=== PATIENT | male | born 1930 | race Caucasian/White ===

== ENCOUNTER 2016-12-17 11:23 | Inpatient (IN) | payer MEDICARE ==
[~2016-12-17] VITALS: Ht 185.4 cm; Wt 92.3 kg
[~2016-12-17 11:23] MED LIST: DILT120T3 PO; FLUO20CA8 PO; GALA8TAB PO; LEVO112T4 PO; SIMV40TA3 PO; WARF2.5T73 PO
[2016-12-17] MEDS ORDERED: SODIUM CHLORIDE 0.9% 1,000 ML IV ONE (11:38)
[2016-12-17 12:00] LABS: HEMOGLOBIN 9.7 g/dL (13.7-18.0)
[2016-12-17] MEDS ORDERED: SODIUM CHLORIDE 0.9% 1,000ML IVBOLUS ONE (12:00)
[2016-12-17] MEDS ORDERED: SODIUM CHLORIDE FLUSH 10ML SYR IVF ONE (12:00)
[2016-12-17] MEDS ORDERED: OMEP40CA6 PO (12:03)
[2016-12-17] MEDS ORDERED: DONE5TAB30 PO (12:03)
[2016-12-17 12:14] LABS: ASPARTATE AMINO TRANSFERASE 12 U/L (15-37); BLOOD UREA NITROGEN 22 mg/dL (7-18)
[2016-12-17] MEDS ORDERED: PHYTONADIONE 10 MG in SODIUM CHLORIDE 0.9% 50 ML IV ONE (14:00)
[2016-12-17] MEDS ORDERED: PANTOPRAZOLE 80 MG in SODIUM CHLORIDE 0.9% 50 ML IV ONE (14:00)
[2016-12-17] MEDS ORDERED: SODIUM CHLORIDE FLUSH 10ML SYR IVF PRN (14:30)
[2016-12-17] MEDS: PANTOPRAZOLE 80 MG in SODIUM CHLORIDE 0.9% 100 ML IV SCH (15:22)
[2016-12-17] MEDS ORDERED: ONDANSETRON ODT 4 MG PO PRN (16:00)
[2016-12-17] MEDS ORDERED: ONDANSETRON 2MG/ML, 2ML IVP PRN (16:00)
[2016-12-17] MEDS ORDERED: ACETAMINOPHEN 325 MG TABLET PO PRN (16:00)
[2016-12-17] MEDS: SODIUM CHLORIDE 0.9% 1,000 ML IV SCH (17:16)
[2016-12-17 17:36] VITALS: BP 105/72
[2016-12-17 18:26] LABS: HEMOGLOBIN 9.6 g/dL (13.7-18.0)
[2016-12-17 18:43] LABS: IS PT STATUS REG ER OR PRE ER? NO
[2016-12-17 20:10] VITALS: BP 116/71
[2016-12-17] MEDS: GALANTAMINE 4 MG TABLET PO SCH (20:33)
[2016-12-17] MEDS ORDERED: LEVOTHYROXINE 112 MCG TABLET PO SCH (21:00)
[2016-12-17] MEDS ORDERED: FLUOXETINE 20 MG CAPSULE PO SCH (21:00)
[2016-12-17] MEDS ORDERED: SIMVASTATIN 40 MG TABLET PO SCH (21:00)
[2016-12-17 22:03] LABS: OCCBLD OBC PASS
[2016-12-18 00:54] LABS: HEMOGLOBIN 8.7 g/dL (13.7-18.0)
[2016-12-18 01:02] LABS: IS PT STATUS REG ER OR PRE ER? NO
[2016-12-18] MEDS: PANTOPRAZOLE 80 MG in SODIUM CHLORIDE 0.9% 100 ML IV SCH ×2 (01:50→12:00)
[2016-12-18 02:27] VITALS: BP 108/68
[2016-12-18] MEDS: SODIUM CHLORIDE 0.9% 1,000 ML IV SCH (05:30)
[2016-12-18 06:53] VITALS: BP 112/74
[2016-12-18 07:06] LABS: ASPARTATE AMINO TRANSFERASE 12 U/L (15-37); BLOOD UREA NITROGEN 20 mg/dL (7-18)
[2016-12-18] MEDS: GALANTAMINE 4 MG TABLET PO SCH (08:56)
[2016-12-18] MEDS ORDERED: GALANTAMINE 4 MG TABLET PO SCH (09:00)
[2016-12-18] MEDS ORDERED: FLUOXETINE 20 MG CAPSULE PO SCH (09:00)
[2016-12-18] MEDS ORDERED: LEVOTHYROXINE 112 MCG TABLET PO SCH (09:00)
[2016-12-18] MEDS ORDERED: DONEPEZIL 5 MG TABLET PO SCH (09:00)
[2016-12-18] MEDS ORDERED: FENTANYL PF 100 MCG/2ML ONE (10:20)
[2016-12-18] MEDS ORDERED: MIDAZOLAM 1 MG/ML, 5ML ONE (10:20)
[2016-12-18 13:08] LABS: HEMOGLOBIN 9.8 g/dL (13.7-18.0)
[2016-12-18] MEDS ORDERED: PANTOPROZOLE 40MG TABLET PO SCH (20:00)
== END 2016-12-18 17:45 | disposition home or self-care (01) | DRG 74 ==
LOC: ED 13:00 → EDIP 14:08 → 5SO 15:32 → DCLOUNGE 12-18 16:47
PROVIDERS: ADMIT Internal Medicine; ATTEND Internal Medicine
PROC: 0T9B70Z Drainage of Bladder with Drainage Device, Via Natural or Artificial Opening (ICD-10-PCS; principal; 2016-12-17)
PROC: 5A09357 Assistance with Respiratory Ventilation, Less than 24 Consecutive Hours, Continuous Positive Airway Pressure (ICD-10-PCS; 2016-12-17)
DX: G90.8 Other disorders of autonomic nervous system (principal); D68.69 Other thrombophilia; I95.9 Hypotension, unspecified; D63.8 Anemia in other chronic diseases classified elsewhere; D49.0 Neoplasm of unspecified behavior of digestive system; I48.2 Chronic atrial fibrillation; E03.9 Hypothyroidism, unspecified; I10 Essential (primary) hypertension; F32.9 Major depressive disorder, single episode, unspecified; E78.5 Hyperlipidemia, unspecified; I25.10 Atherosclerotic heart disease of native coronary artery without angina pectoris; G47.30 Sleep apnea, unspecified; F02.80 Dementia in other diseases classified elsewhere, unspecified severity, without behavioral disturbance, psychotic disturbance, mood disturbance, and anxiety; G30.9 Alzheimer's disease, unspecified; Z96.642 Presence of left artificial hip joint; Z86.711 Personal history of pulmonary embolism; Z86.718 Personal history of other venous thrombosis and embolism; Z79.01 Long term (current) use of anticoagulants; Z85.028 Personal history of other malignant neoplasm of stomach; Z90.3 Acquired absence of stomach [part of]; Z95.0 Presence of cardiac pacemaker; I25.2 Old myocardial infarction; Z82.3 Family history of stroke; Z87.891 Personal history of nicotine dependence; Z80.0 Family history of malignant neoplasm of digestive organs; R55 Syncope and collapse
CPT/HCPCS: 36415; 71010; 74177; 80053; 81003; 82272; 82728; 83540; 83550; 83605; 83690; 84466; 84484; 85014; 85018; 85025; 85610; 85730; 86850; 86900; 88305; 88313; 93005; 96374; J2250; J3010; J3430; C9113; J7030

== ENCOUNTER → 2017-02-12 | Outpatient (CLI) | payer MEDICARE ==
[~2017-02-12] MED LIST changes: +DONE5TAB30 PO; +OMEP40CA6 PO; +OMNIPAQUE 350 MG/ML, 100ML BOTTLE ONE
[2017-02-12 12:54] LABS: BLOOD UREA NITROGEN 23 mg/dL (7-18)
[2017-02-12 12:59] LABS: ASPARTATE AMINO TRANSFERASE 21 U/L (15-37); TOTAL IRON BINDING CAPACITY 406 mcg/dL (250-450)
== END | disposition home or self-care (01) ==
LOC: CFH 09:25
PROVIDERS: ATTEND Internal Medicine Hematology & Oncology
DX: C16.9 Malignant neoplasm of stomach, unspecified (principal); N28.1 Cyst of kidney, acquired; K82.8 Other specified diseases of gallbladder; I26.09 Other pulmonary embolism with acute cor pulmonale; I48.4 Atypical atrial flutter; E03.9 Hypothyroidism, unspecified; E78.1 Pure hyperglyceridemia; I10 Essential (primary) hypertension; F32.89 Other specified depressive episodes; R41.3 Other amnesia; K92.2 Gastrointestinal hemorrhage, unspecified; R55 Syncope and collapse; I95.9 Hypotension, unspecified; D50.0 Iron deficiency anemia secondary to blood loss (chronic); Z79.01 Long term (current) use of anticoagulants
CPT/HCPCS: 36415; 74170; 80053; 82565; 82728; 83540; 83550; 85025; Q9967

== ENCOUNTER 2017-06-22 13:44 | Inpatient (IN) | payer MEDICARE ==
[~2017-06-22] VITALS: Ht 182.9 cm; Wt 98.1 kg
[~2017-06-22 13:44] MED LIST changes: -DONE5TAB30 PO; +DONE5TAB52 PO; -OMNIPAQUE 350 MG/ML, 100ML BOTTLE ONE
[2017-06-22 14:35] LABS: BLOOD UREA NITROGEN 20 mg/dL (7-18)
[2017-06-22 14:46] LABS: HEMATOCRIT 38.7 % (39.2-51.8); HEMOGLOBIN 12.7 g/dL (13.7-18.0)
[2017-06-22 15:03] LABS: DIFF TOTAL CELLS COUNTED 100 CELL DIFF
[2017-06-22 15:07] LABS: VERIFY COUNTS? YES
[2017-06-22 15:08] LABS: ANISOCYTOSIS 2+; HYPOCHROMIA 1+; MICROCYTOSIS 1+; POLYCHROMASIA 1+
[2017-06-22] MEDS ORDERED: POLYETHYLENE GLYCOL 17 GM PACKET PO PRN (18:30)
[2017-06-22] MEDS ORDERED: ACETAMINOPHEN 325 MG TABLET PO PRN (18:30)
[2017-06-22] MEDS ORDERED: MORPHINE SULFATE 4 MG/ML, 1ML IVPush PRN (18:30)
[2017-06-22] MEDS ORDERED: BISACODYL 10 MG SUPP PR PRN (18:30)
[2017-06-22] MEDS ORDERED: ONDANSETRON 2MG/ML, 2ML IVPush PRN (18:30)
[2017-06-22 18:34] VITALS: BP 141/100
[2017-06-22] MEDS ORDERED: FLU VACC QS2017-18 (36MOS+) UP/PF 0.5 ML IM-VACC ONE (19:30)
[2017-06-22] MEDS: SODIUM CHLORIDE FLUSH 10ML SYR IVF SCH (20:35)
[2017-06-22] MEDS: DILTIAZEM 120 MG CAP.ER.24H PO SCH (20:36)
[2017-06-22] MEDS: OMEPRAZOLE 20 MG CAPSULE.DR PO SCH (20:36)
[2017-06-22] MEDS: GALANTAMINE 4 MG TABLET PO SCH (20:36)
[2017-06-22] MEDS: LEVOTHYROXINE 112 MCG TABLET PO SCH (20:37)
[2017-06-22] MEDS: SIMVASTATIN 40 MG TABLET PO SCH (20:37)
[2017-06-22] MEDS: FLUOXETINE 20 MG CAPSULE PO SCH (20:39)
[2017-06-23 01:38] VITALS: BP 108/66
[2017-06-23] MEDS: D5%-0.9% NACL 1,000 ML IV SCH ×2 (02:37→14:38)
[2017-06-23 05:43] LABS: HEMATOCRIT 35.7 % (39.2-51.8); WHITE BLOOD COUNT 4.7 x10^3/uL (3.4-10)
[2017-06-23 05:57] LABS: ASPARTATE AMINO TRANSFERASE 16 U/L (15-37); BLOOD UREA NITROGEN 22 mg/dL (7-18)
[2017-06-23 07:26] VITALS: BP 100/60
[2017-06-23] MEDS: SODIUM CHLORIDE FLUSH 10ML SYR IVF SCH ×2 (07:55→22:12)
[2017-06-23] MEDS: OMEPRAZOLE 20 MG CAPSULE.DR PO SCH ×2 (07:56→22:09)
[2017-06-23] MEDS: GALANTAMINE 4 MG TABLET PO SCH ×2 (07:56→22:09)
[2017-06-23] MEDS: SENNA/DOCUSATE TABLET PO SCH (07:56)
[2017-06-23 13:22] VITALS: BP 114/69
[2017-06-23 19:42] VITALS: BP 121/74
[2017-06-23] MEDS: FLUOXETINE 20 MG CAPSULE PO SCH (22:09)
[2017-06-23] MEDS: LEVOTHYROXINE 112 MCG TABLET PO SCH (22:09)
[2017-06-23] MEDS: SIMVASTATIN 40 MG TABLET PO SCH (22:09)
[2017-06-23] MEDS: DILTIAZEM 120 MG CAP.ER.24H PO SCH (22:10)
[2017-06-24 01:58] VITALS: BP 115/68
[2017-06-24] MEDS: D5%-0.9% NACL 1,000 ML IV SCH (04:54)
[2017-06-24 05:02] LABS: HEMATOCRIT 34.9 % (39.2-51.8); HEMOGLOBIN 11.6 g/dL (13.7-18.0); WHITE BLOOD COUNT 5.4 x10^3/uL (3.4-10)
[2017-06-24 05:13] LABS: BLOOD UREA NITROGEN 18 mg/dL (7-18)
[2017-06-24 05:16] LABS: ASPARTATE AMINO TRANSFERASE 16 U/L (15-37)
[2017-06-24 07:20] VITALS: BP 113/70
[2017-06-24] MEDS: SODIUM CHLORIDE FLUSH 10ML SYR IVF SCH (09:36)
[2017-06-24] MEDS: SENNA/DOCUSATE TABLET PO SCH (09:39)
[2017-06-24] MEDS: GALANTAMINE 4 MG TABLET PO SCH (09:40)
[2017-06-24] MEDS: OMEPRAZOLE 20 MG CAPSULE.DR PO SCH (09:40)
[2017-06-24] MEDS ORDERED: DILT120C9 PO (11:57)
[2017-06-24] MEDS ORDERED: HYDR-883 PO (11:58)
[2017-06-24 13:01] VITALS: BP 124/69
[2017-06-24] MEDS ORDERED: HYDR-3240 PO (13:33)
[2017-06-24] MEDS ORDERED: WARFARIN 3 MG TABLET PO-COUM ONE (18:00)
== END 2017-06-24 13:46 | disposition home health service (06) | DRG 562 ==
LOC: ED 15:49 → EDIP 17:31 → 4NOR 18:17 → DCLOUNGE 06-24 13:29
PROVIDERS: ADMIT Family Medicine; ATTEND Family Medicine
DX: S82.042A Displaced comminuted fracture of left patella, initial encounter for closed fracture (principal); E43 Unspecified severe protein-calorie malnutrition; D68.69 Other thrombophilia; F03.90 Unspecified dementia, unspecified severity, without behavioral disturbance, psychotic disturbance, mood disturbance, and anxiety; D69.6 Thrombocytopenia, unspecified; I48.2 Chronic atrial fibrillation; D64.9 Anemia, unspecified; E03.9 Hypothyroidism, unspecified; E78.5 Hyperlipidemia, unspecified; I25.10 Atherosclerotic heart disease of native coronary artery without angina pectoris; Z66 Do not resuscitate; Z96.642 Presence of left artificial hip joint; W18.39XA Other fall on same level, initial encounter; Y93.89 Activity, other specified; Y92.098 Other place in other non-institutional residence as the place of occurrence of the external cause; Y99.8 Other external cause status; I25.2 Old myocardial infarction; Z82.3 Family history of stroke; Z92.21 Personal history of antineoplastic chemotherapy; Z92.3 Personal history of irradiation; Z85.028 Personal history of other malignant neoplasm of stomach; Z79.01 Long term (current) use of anticoagulants; Z68.29 Body mass index [BMI] 29.0-29.9, adult; Z86.718 Personal history of other venous thrombosis and embolism; Z87.891 Personal history of nicotine dependence; Z95.0 Presence of cardiac pacemaker; Z23 Encounter for immunization
CPT/HCPCS: 36415; 70450; 80048; 80053; 82040; 85025; 85610; 86850; 86900; 90686; J7042

== ENCOUNTER 2017-11-24 14:11 | Emergency (ER) | payer MEDICARE ==
[~2017-11-24] VITALS: Ht 182.9 cm; Wt 99.0 kg
[~2017-11-24 14:11] MED LIST changes: +DILT120C9 PO; +HYDR-3240 PO; +HYDR-883 PO
[2017-11-24] MEDS ORDERED: LIDOCAINE-MPF 1%, 5ML INFIL ONE (15:00)
[2017-11-24 15:02] LABS: BASOPHILS # (AUTO) 0.05 x10^3/uL (0-0.1); BASOPHILS % (AUTO) 1 % (0-1); EOSINOPHILS # (AUTO) 0.27 x10^3/uL (0-0.4); EOSINOPHILS % (AUTO) 5 % (1-7); LYMPHOCYTES # (AUTO) 0.94 x10^3/uL (1-3.4); LYMPHOCYTES % (AUTO) 17 % (22-44); MD NO; MEAN CORPUSCULAR HEMOGLOBIN 32.4 pg (27.5-34.5); MEAN CORPUSCULAR HGB CONC 33.3 g/dL (33.2-36.2); MEAN CORPUSCULAR VOLUME 97.3 fL (81-97); MEAN PLATELET VOLUME 7.9 fL (7.4-10.4); MONOCYTES # (AUTO) 0.42 x10^3/uL (0.2-0.8); MONOCYTES % (AUTO) 8 % (2-9); NEUTROPHILS # (AUTO) 3.76 x10^3/uL (1.8-6.8); NEUTROPHILS % (AUTO) 69 % (42-75); PLATELET COUNT 138 x10^3/uL (130-400); RED BLOOD COUNT 4.34 x10^6/uL (4.38-5.82); RED CELL DISTRIBUTION WIDTH 16.1 % (9.4-14.8)
[2017-11-24 15:12] LABS: ALBUMIN 3.3 g/dL (3.4-5.0); ANION GAP 6 mmol/L (5-15); CHLORIDE 106 mmol/L (98-107); CREATININE 1.16 mg/dL (0.7-1.3); INTERNATIONAL NORMALIZED RATIO 2.5 (0.93-1.1); PROTHROMBIN TIME 25.5 Seconds (9.6-11.5)
[2017-11-24] MEDS ORDERED: L.E.T SOLUTION TP ONE ×2 (16:00→16:07)
[2017-11-24] MEDS ORDERED: SODIUM CHLORIDE 0.9% 1,000ML IVBOLUS ONE (17:00)
[2017-11-24] MEDS ORDERED: CEFAZOLIN PMX 1GM/50ML 50 ML ONE (17:29)
[2017-11-24] MEDS ORDERED: CEFAZOLIN PMX 1GM/50ML 50 ML IV ONE (17:30)
[2017-11-24] MEDS ORDERED: DIPH,PERTUSS(ACELL),TET VAC/PF 0.5 ML IM-VACC ONE ×2 (17:30)
[2017-11-24 17:52] LABS: MEAN CORPUSCULAR HEMOGLOBIN 33.1 pg (27.5-34.5); MEAN CORPUSCULAR HGB CONC 33.7 g/dL (33.2-36.2); MEAN CORPUSCULAR VOLUME 98.2 fL (81-97); MEAN PLATELET VOLUME 7.8 fL (7.4-10.4); PLATELET COUNT 122 x10^3/uL (130-400); RED BLOOD COUNT 4.04 x10^6/uL (4.38-5.82); RED CELL DISTRIBUTION WIDTH 16.2 % (9.4-14.8)
[2017-11-24] MEDS ORDERED: BACITRACIN ZINC OINT 500U/GM, 0.9 GM ONE (17:56)
[2017-11-24 18:14] LABS: BASOPHILS # (AUTO) 0.03 x10^3/uL (0-0.1); BASOPHILS % (AUTO) 0 % (0-1); EOSINOPHILS # (AUTO) 0.27 x10^3/uL (0-0.4); EOSINOPHILS % (AUTO) 3 % (1-7); LYMPHOCYTES # (AUTO) 1.95 x10^3/uL (1-3.4); LYMPHOCYTES % (AUTO) 22 % (22-44); MD SCAN; MONOCYTES # (AUTO) 0.91 x10^3/uL (0.2-0.8); MONOCYTES % (AUTO) 10 % (2-9); NEUTROPHILS # (AUTO) 5.93 x10^3/uL (1.8-6.8); NEUTROPHILS % (AUTO) 65 % (42-75)
[2017-11-24 19:29] VITALS: BP 118/72
== END 2017-11-24 19:31 | disposition home or self-care (01) ==
LOC: ED 19:13
DX: S01.82XA Laceration with foreign body of other part of head, initial encounter (principal); I10 Essential (primary) hypertension; E78.5 Hyperlipidemia, unspecified; I25.10 Atherosclerotic heart disease of native coronary artery without angina pectoris; W01.0XXA Fall on same level from slipping, tripping and stumbling without subsequent striking against object, initial encounter; Y93.89 Activity, other specified; Y92.89 Other specified places as the place of occurrence of the external cause; Y99.8 Other external cause status; Z86.711 Personal history of pulmonary embolism; Z79.01 Long term (current) use of anticoagulants; Z86.718 Personal history of other venous thrombosis and embolism; Z85.028 Personal history of other malignant neoplasm of stomach; Z95.0 Presence of cardiac pacemaker
CPT/HCPCS: 12013; 12054; 36415; 70450; 72125; 80048; 82040; 85025; 85610; 85730; 90715; 96365; 96372; 99285; J0690; J7030

== ENCOUNTER 2018-02-03 17:21 | Emergency (ER) | payer MEDICARE ==
[~2018-02-03] VITALS: Ht 182.9 cm; Wt 97.3 kg
[2018-02-03 17:23] VITALS: BP 108/74
[2018-02-03] MEDS ORDERED: LIDOCAINE-MPF 1%, 5ML ONE (17:50)
[2018-02-03] MEDS ORDERED: LIDOCAINE-MPF 1%, 5ML INFIL ONE (18:00)
[2018-02-03] MEDS ORDERED: CEFAZOLIN 1,000 MG IM ONE (18:30)
[2018-02-03] MEDS ORDERED: CEFAZOLIN 1,000 MG ONE (18:36)
== END 2018-02-03 19:57 | disposition home or self-care (01) ==
LOC: ED 19:40
DX: S61.001A Unspecified open wound of right thumb without damage to nail, initial encounter (principal); S62.524A Nondisplaced fracture of distal phalanx of right thumb, initial encounter for closed fracture; I48.91 Unspecified atrial fibrillation; Z87.891 Personal history of nicotine dependence; W26.8XXA Contact with other sharp object(s), not elsewhere classified, initial encounter; Y93.89 Activity, other specified; Y99.8 Other external cause status; Y92.009 Unspecified place in unspecified non-institutional (private) residence as the place of occurrence of the external cause
CPT/HCPCS: 73130; 96372; 99284; J0690

== ENCOUNTER → 2018-02-12 | Outpatient (CLI) | payer MEDICARE ==
[~2018-02-12] MED LIST changes: +OMNIPAQUE 350 MG/ML, 100ML BOTTLE ONE
== END | disposition home or self-care (01) ==
LOC: CFH 08:32
PROVIDERS: ATTEND Internal Medicine Hematology & Oncology
DX: C19 Malignant neoplasm of rectosigmoid junction (principal); C16.9 Malignant neoplasm of stomach, unspecified; K76.0 Fatty (change of) liver, not elsewhere classified; K76.89 Other specified diseases of liver; D73.89 Other diseases of spleen; Z85.048 Personal history of other malignant neoplasm of rectum, rectosigmoid junction, and anus
CPT/HCPCS: 74177; 82565; Q9967

== ENCOUNTER → 2019-01-22 | Outpatient (CLI) | payer MEDICARE ==
[~2019-01-22] MED LIST changes: +HYDR-3652 PO; -HYDR-883 PO; +WARF2.5T32 PO; -WARF2.5T73 PO
== END | disposition home or self-care (01) ==
LOC: RAD 11:13
PROVIDERS: ATTEND Nurse Practitioner Primary Care
DX: R19.7 Diarrhea, unspecified (principal); R63.4 Abnormal weight loss; N40.0 Benign prostatic hyperplasia without lower urinary tract symptoms; I10 Essential (primary) hypertension; K92.2 Gastrointestinal hemorrhage, unspecified; E03.9 Hypothyroidism, unspecified; Z79.01 Long term (current) use of anticoagulants; I72.3 Aneurysm of iliac artery; I70.8 Atherosclerosis of other arteries; Z85.038 Personal history of other malignant neoplasm of large intestine
CPT/HCPCS: 74177; Q9967

== ENCOUNTER 2020-04-12 08:14 | Emergency (ER) | payer MEDICARE ==
[~2020-04-12] VITALS: Ht 182.9 cm; Wt 85.3 kg
[~2020-04-12 08:14] MED LIST changes: +DILT120C48 PO; -DILT120C9 PO; +FLUO20CA23 PO; -FLUO20CA8 PO; -GALA8TAB PO; +GALA8TAB8 PO; +OMEP40CA42 PO; -OMEP40CA6 PO; -OMNIPAQUE 350 MG/ML, 100ML BOTTLE ONE; +SIMV40TA20 PO; -SIMV40TA3 PO
--- NOTE | 2020-04-12 08:52 | NUR ---
PT HAD GLF. SKIN TEAR TO LEFT ELBOW. PT STATES HE HIT HEAD BUT NO LOC. DENIES DIZZINES, SYNCOPE, SOB OR CP.
[2020-04-12 09:22] LABS: BASOPHILS # (AUTO) 0.02 x10^3/uL (0-0.1); BASOPHILS % (AUTO) 1 % (0-1); EOSINOPHILS # (AUTO) 0.27 x10^3/uL (0-0.4); EOSINOPHILS % (AUTO) 6 % (1-7); LYMPHOCYTES % (AUTO) 22 % (22-44); MD NO; MEAN CORPUSCULAR HEMOGLOBIN 32.2 pg (27.5-34.5); MEAN CORPUSCULAR HGB CONC 32.2 g/dL (33.2-36.2); MEAN PLATELET VOLUME 8.3 fL (7.4-10.4); MONOCYTES # (AUTO) 0.44 x10^3/uL (0.2-0.8); MONOCYTES % (AUTO) 9 % (2-9); NEUTROPHILS # (AUTO) 2.93 x10^3/uL (1.8-6.8); NEUTROPHILS % (AUTO) 63 % (42-75); PLATELET COUNT 131 x10^3/uL (130-400); RED BLOOD COUNT 4.16 x10^6/uL (4.38-5.82); RED CELL DISTRIBUTION WIDTH 16.4 % (9.4-14.8)
[2020-04-12 09:30] LABS: INTERNATIONAL NORMALIZED RATIO 1.75 (0.93-1.1); PROTHROMBIN TIME 18.7 Seconds (9.6-11.5)
[2020-04-12 09:34] LABS: ALBUMIN 3.2 g/dL (3.4-5.0); ANION GAP 4 mmol/L (5-15); CALCIUM 8.8 mg/dL (8.5-10.1); CHLORIDE 107 mmol/L (98-107)
[2020-04-12 09:38] LABS: CREATININE 0.97 mg/dL (0.7-1.3); TROPONIN I < 0.015 ng/mL (0.000-0.045)
--- NOTE | 2020-04-12 11:32 | NUR ---
SKIN TEAR CLEANED AND DRESSED W [employer].
--- NOTE | 2020-04-12 11:32 | NUR ---
Patient/Caregiver given discharge instructions and they have confirmed that they understand the instructions. Patient ambulatory with steady gait.
[2020-04-12 11:36] VITALS: BP 136/80
== END 2020-04-12 11:37 | disposition home or self-care (01) ==
LOC: ED 11:06
DX: S09.90XA Unspecified injury of head, initial encounter (principal); R42 Dizziness and giddiness; I10 Essential (primary) hypertension; Z95.0 Presence of cardiac pacemaker; Z85.00 Personal history of malignant neoplasm of unspecified digestive organ; Z79.899 Other long term (current) drug therapy; Z79.01 Long term (current) use of anticoagulants; Z51.81 Encounter for therapeutic drug level monitoring; Z86.711 Personal history of pulmonary embolism; W18.39XA Other fall on same level, initial encounter; Y93.89 Activity, other specified; Y92.89 Other specified places as the place of occurrence of the external cause; Y99.8 Other external cause status
CPT/HCPCS: 36415; 70450; 71045; 80048; 82040; 83880; 84484; 85025; 85610; 93005; 99285